=== PATIENT | female | born 1975 | race Caucasian/White ===

== ENCOUNTER 2018-01-11 19:49 | Emergency (ER) | payer SELFPAY ==
[~2018-01-11] VITALS: Ht 157.5 cm; Wt 78.0 kg
[2018-01-11] MEDS ORDERED: KETOROLAC 60MG/2ML VIAL IM ONE (23:00)
[2018-01-12 00:24] VITALS: BP 132/80
== END 2018-01-12 00:32 | disposition home or self-care (01) ==
LOC: ER 21:14
DX: S00.83XA Contusion of other part of head, initial encounter (principal); Z88.9 Allergy status to unspecified drugs, medicaments and biological substances; V49.88XA Car occupant (driver) (passenger) injured in other specified transport accidents, initial encounter; Y93.89 Activity, other specified; Y92.89 Other specified places as the place of occurrence of the external cause; Y99.8 Other external cause status
CPT/HCPCS: 70450; 70486; 81025; 96372; 99284; J1885; Z7610